=== PATIENT | female | born 1995 | race African-American/Black ===

== ENCOUNTER 2020-08-14 10:38 | Emergency (ER) | payer OTHER, SELFPAY ==
[2020-08-14 10:45] VITALS: BP 128/93; PULSE 80; RESP 17; O2SAT 100
--- NOTE | 2020-08-14 10:53 | ED.DENTAL ---
HPI - Dental/Oral General Chief complaint: Dental/Oral Stated complaint: Left side of Face Pain Time Seen by Provider: 08/14/20 10:53 Source: patient Mode of arrival: ambulatory Limitations: no limitations History of Present Illness HPI Narrative: 25-year-old woman who is 15 weeks comes in today complaining of left-sided facial swelling and pain which is worse when she moves her jaw. Pain has been present for couple of weeks. She states that she has had no fever, ear pain, tooth pain or mouth swelling or recent sore throat, cough or cold symptoms or sick exposures. Onset (ago): week(s) (2) Duration: constant Severity: severe Relieving factors: nothing Exacerbating factors: chewing Treatment prior to arrival: oral analgesic Related Data Home Medications Medication Instructions Recorded Confirmed [id number] 1 tablet PO 08/14/20 [] Allergies Allergy/AdvReac Type Severity Reaction Status Date / Time No Known Allergies Allergy Verified 08/14/20 11:02 Review of Systems Constitutional: Constitutional: Denies chills and Denies fever(s) ENT: Denies dysphagia, Denies nasal congestion and Denies sore throat Cardiovascular: Cardiovascular: Denies chest pain and Denies radiating jaw, neck or arm pain Respiratory: Respiratory: Denies cough, Denies dyspnea and Denies wheezing Gastrointestinal: Gastrointestinal: Denies abdominal pain, Denies nausea and Denies vomiting Genitourinary: Genitourinary: Reports no additional female genitourinary complaints Musculoskeletal: Musculoskeletal: Denies arthralgias and Denies joint swelling Integumentary/Breasts: Skin/Breast: Denies pruritus, Denies erythema and Denies rash Neurologic: Denies vertigo, Denies dizziness and Denies syncope Hematologic/Lymphatic: Hematologic/Lymphatic: Denies easy bleeding and Denies easy bruising Allergic/Immunologic: Allergic/Immunologic: Denies lip swelling and Denies tongue swelling [facility] Social History Social History (Updated 08/14/20 @ 11:03 by Abdiel Carson MD) Smoking status: Never smoker Substance use: never Living arrangements: with family Exam Const: General: healthy appearing and alert Orientation/consciousness: patient oriented x3 Limitations: no limitations Other: Moderate acute distress, tearfull HENMT: Ears: external ears normal, TM's normal bilaterally and EAC's normal ( No tenderness of the EAC or mastoid.) General nose exam: Normal nares present Mouth: Yes Normal oral and palatal mucosa present and Yes moist mucous membranes Teeth and gingiva: dentition normal Throat: posterior oropharynx normal Other: Tenderness and swelling over the left zygoma and left maxillary sinus without fluctuance, warmth or erythema. No tenderness palpation of the TMJ. Eyes: Conjunctivae: conjunctivae normal Pupils: Equal, round and reactive pupils present EOM: EOMs intact bilaterally Resp: Effort & Inspection: normal respiratory effort and not labored Auscultation: clear to auscultation bilaterally, no rales, no rhonchi and no wheezes Cardio: Rate: regular rate Rhythm: regular rhythm Heart sounds: no murmurs Neuro: General: patient oriented x3, moves all extremities, no focal motor deficits and CN's II-XI intact bilaterally Speech: normal speech Gait exam (Neuro): Normal gait present Extrem: General: normal to inspection and no clubbing, cyanosis or edema Psych: Appearance: grossly normal and well kempt Mental Status: mental status grossly normal Affect: normal affect Attitude: cooperative Thought content: Yes Normal thought content present Discharge Plan Discharge Clinical Impression: Acute maxillary sinusitis Qualifiers: Recurrence: non-recurrent Qualified Code(s): J01.00 - Acute maxillary sinusitis, unspecified Patient Disposition: Home, Self-Care Condition: Stable Instructions: Antibiotic Form, Sinusitis (ED) Additional Instructions: Follow-up with your doc
== END 2020-08-14 11:15 | disposition home or self-care (01) ==
PROVIDERS: Emergency Provider Emergency Medicine
DX: J01.00 Acute maxillary sinusitis, unspecified (principal)
CPT/HCPCS: 99283